=== PATIENT | male | born 1985 | race Caucasian/White ===

== ENCOUNTER 2019-06-16 06:13 | Day surgery (SDC) | payer OTHER ==
[~2019-06-16 06:13] MED LIST: EPINEPHrine 1 MG/ML 30 ML MDV ONE; FLU Vacc QS2019-20(6MOS+)/PF 60 MCG/0.5 ML SYRINGE IM ONE; Lactated Ringers 1,000 ML IV SCH; Lidocaine 1%/Sod Bicarbonate in NS 8.4% 1 ML Syringe IDERM PRN; Sodium Chloride 0.9% 10 ML Syringe FLUSH PRN
[2019-06-16] MEDS ORDERED: Bupivacaine 0.25% 10 ML SDV ONE (06:37)
[2019-06-16] MEDS ORDERED: Lactated Ringers 1,000 ML ONE (06:55)
[2019-06-16] MEDS ORDERED: Midazolam 1 MG/ML 2 ML SDV ONE (06:55)
[2019-06-16] MEDS ORDERED: Lidocaine 1% 4 ML ONE (06:55)
[2019-06-16] MEDS ORDERED: Ondansetron 4 MG/2 ML SDV ONE (06:55)
[2019-06-16] MEDS ORDERED: Propofol 200 MG/20 ML SDV ONE ×2 (06:55→06:58)
[2019-06-16] MEDS ORDERED: ceFAZolin 1 GM Vial ONE (06:55)
[2019-06-16] MEDS ORDERED: fentaNYL 250 MCG/5 ML SDV ONE (06:56)
[2019-06-16] MEDS ORDERED: Dexamethasone 4 MG/ML 5 ML MDV ONE (06:56)
[2019-06-16] MEDS ORDERED: Ketorolac 30 MG/ML SDV ONE (06:56)
--- NOTE | 2019-06-16 07:36 | PCM.PREANE ---
Preanesthetic Assessment - Anesthesia/Transfusion/Family Hx Anesthesia History: Prior Anesthesia Without Reaction Family History of Anesthesia Reaction: No Transfusion History: No Prior Transfusion(s) - Review of Systems General: No Symptoms Pulmonary: No Symptoms Cardiovascular: No Symptoms (Borderline Hypertension, following with primary and monitoring currently not on any medications. ) Gastrointestinal: No Symptoms Neurological: Other (Insomnia uses marijuana nightly to sleep. Inhaled. Last time 2 days ago. ) Other: Reports: None - Physical Assessment NPO Status Date: 06/15/19 NPO Status Time: 20:30 Vital Signs: Last Vital Signs Temp 36.7 C 06/16/19 06:25 Pulse 79 06/16/19 06:25 Resp 16 06/16/19 06:25 BP 142/96 H 06/16/19 06:25 Pulse Ox 97 06/16/19 06:25 Height: 1.83 m Weight: 104.326 kg ASA Class: 2 Mental Status: Alert & Oriented x3 Airway Class: Mallampati = 1 Dentition: Reports: Caries Thyro-Mental Finger Breadths: 3 Mouth Opening Finger Breadths: 3 ROM/Head Extension: Full Lungs: Clear to Auscultation, Normal Respiratory Effort Cardiovascular: Regular Rate, Regular Rhythm - Lab Values: Laboratory Last Values MRSA (PCR) Negative 06/14/19 10:55 - Allergies Allergies/Adverse Reactions: Allergies Allergy/AdvReac Type Severity Reaction Status Date / Time No Known Allergies Allergy Verified 06/15/19 13:01 - Acknowledgements Anesthesia Type Planned: General Anesthesia Pt an Appropriate Candidate for the Planned Anesthesia: Yes Alternatives and Risks of Anesthesia Discussed w Pt/Guardian: Yes Pt/Guardian Understands and Agrees with Anesthesia Plan: Yes PreAnesthesia Questionnaire - Past Health History Medical/Surgical History: Denies Medical/Surgical History Other Musculoskeletal History: knee cap dislocation - Past Surgical History Musculoskeletal Surgical History: Reports: Other (See Below) Other Musculoskeletal Surgeries/Procedures:: left hand surgery - SUBSTANCE USE Smoking Status *Q: Former Smoker Recreational Drug Use History: Yes Recreational Drug Type: Reports: Marijuana/Hashish - HOME MEDS Home Medications: Home Meds Esomeprazole Magnesium [Nexium] 20 mg PO DAILY 06/15/19 [History] Lactobacillus Combo No.10 [Probiotic] 1 cap PO DAILY 06/15/19 [History] Acetaminophen/HYDROcodone [[place] 325-5 MG] 1 - 2 tab PO Q6H PRN #20 tablet 06/16 [Rx] Aspirin 325 mg PO BID #84 tab 06/16/19 [Rx] - CURRENT (IN HOUSE) MEDS Current Meds: Current Medications Lactated Ringer's (Ringers, Lactated) 1,000 mls @ 125 mls/hr IV ASDIRECTED JATINDER Stop: 06/16/19 23:00 Last Admin: 06/16/19 06:59 Dose: 125 mls/hr Lidocaine/Sodium Bicarbonate (Buffered Lidocaine 1% In Ns 8.4%) 0.25 ml IDERM ONETIME PRN PRN Reason: Prior to IV Start Stop: 06/16/19 23:00 Last Admin: 06/16/19 06:59 Dose: 0.25 ml Sodium Chloride (Saline Flush) 10 ml FLUSH ASDIRECTED PRN PRN Reason: Keep Vein Open Stop: 06/16/19 23:00 Discontinued Medications Bupivacaine HCl (Sensorcaine-Mpf 0.25%) Confirm Administered Dose 20 ml .ROUTE .STK-MED ONE Stop: 06/16/19 06:38 Cefazolin Sodium (Ancef) Confirm Administered Dose 2 gm .ROUTE .STK-MED ONE Stop: 06/16/19 06:56 Dexamethasone (Dexamethasone) Confirm Administered Dose 20 mg .ROUTE .STK-MED ONE Stop: 06/16/19 06:57 Epinephrine HCl (Adrenalin) 3 mg .XX ONETIME ONE Stop: 06/15/19 10:01 Fentanyl (Sublimaze) Confirm Administered Dose 250 mcg .ROUTE .STK-MED ONE Stop: 06/16/19 06:57 Lidocaine HCl (Xylocaine-Mpf 1%) Confirm Administered Dose 4 mls @ as directed .ROUTE .STK-MED ONE Stop: 06/16/19 06:56 Lactated Ringer's (Ringers, Lactated) Confirm Administered Dose 1,000 mls @ as directed .ROUTE .STK-MED ONE Stop: 06/16/19 06:56 Influenza Virus Vaccine (Fluzone Quad 5867-1103 Syringe) 60 mcg IM .ONCE ONE Stop: 06/15/19 13:01 Ketorolac Tromethamine (Toradol) Confirm Administered Dose 30 mg .ROUTE .STK- MED ONE Stop: 06/16/19 06:57 Midazolam HCl (Versed 1 Mg/Ml) Confirm Administered Dose 2 mg .ROUTE .STK-MED ONE Stop: 06/16/19 06:56 Ondansetron HCl (Zofran) Confirm Administered Dose 4 mg .ROUTE .STK-MED ONE Stop: 06/16/19 06:56 Propofol (Diprivan 20 Ml) Confirm Administered Dose 400 mg .ROUTE .STK-MED ONE Stop: 06/16/19 06:56 Propofol (Diprivan 20 Ml) Confirm Administered Dose 200 mg .ROUTE .STK-MED ONE Stop: 06/16/19 06:59
[2019-06-16] MEDS ORDERED: HYDROmorphone 0.5 MG/0.5 ML Syringe IVPUSH PRN (07:37)
[2019-06-16] MEDS ORDERED: Ondansetron 4 MG/2 ML SDV IVPUSH PRN (07:37)
[2019-06-16] MEDS ORDERED: fentaNYL 100 MCG/2 ML SDV IVPUSH PRN (07:37)
--- NOTE | 2019-06-16 08:12 | PCM.POSTAN ---
POST ANESTHESIA ASSESSMENT - MENTAL STATUS Mental Status: Somnolent - VITAL SIGNS Vital Signs: Last Vital Signs Temp 36.7 C 06/16/19 06:25 Pulse 79 06/16/19 06:25 Resp 16 06/16/19 06:25 BP 142/96 H 06/16/19 06:25 Pulse Ox 97 06/16/19 06:25 - RESPIRATORY Respiratory Status: Respiratory Rate WNL, Airway Patent, Supplemental Oxygen - CARDIOVASCULAR CV Status: Pulse Rate WNL, Blood Pressure Stable - GASTROINTESTINAL GI Status: No Symptoms - PAIN Pain Score: 0 - POST OP HYDRATION Hydration Status: Adequate & Stable
[2019-06-16] MEDS ORDERED: Acetaminophen/HYDROcodone 325-5 MG Tab PO PRN (08:30)
[2019-06-16] MEDS ORDERED: FLU Vacc QS2019-20(6MOS+)/PF 60 MCG/0.5 ML SYRINGE ONE (08:43)
--- NOTE | 2019-06-16 09:07 | PCM48HPAN ---
Post Anesthesia Note - EVALUATION WITHIN 48HRS OF ANESTHETIC Vital Signs in Normal Range: Yes Patient Participated in Evaluation: Yes Respiratory Function Stable: Yes Airway Patent: Yes Cardiovascular Function Stable: Yes Hydration Status Stable: Yes Pain Control Satisfactory: Yes Nausea and Vomiting Control Satisfactory: Yes Mental Status Recovered: Yes Vital Signs: Last Vital Signs Temp 37.2 C 06/16/19 08:51 Pulse 78 06/16/19 08:51 Resp 16 06/16/19 08:51 BP 140/89 06/16/19 08:51 Pulse Ox 95 06/16/19 08:51
--- NOTE | 2019-06-20 07:01 | PCM.OPNOTE ---
- General Post-Op/Procedure Note Date of Surgery/Procedure: 06/16/19 Operative Procedure(s): right knee video arthroscopy with partial medial meniscectomy Pre Op Diagnosis: right knee medial meniscus tear Post-Op Diagnosis: Same Anesthesia Technique: General LMA, Local Primary Surgeon: Osbaldo Valdez Anesthesia Provider: [facility] Recruiter: Estefani Medrano in mLs: 5 Complications: None Condition: Good
--- NOTE | 2019-06-20 07:50 | OR ---
DATE OF OPERATION: 06/16/2019 SURGEON: Osbaldo Valdez MD OPERATION PERFORMED: Right knee video arthroscopy with partial medial meniscectomy. PREOPERATIVE DIAGNOSIS: Right knee medial meniscus tear. POSTOPERATIVE DIAGNOSIS: Right knee medial meniscus tear. ANESTHESIA: General LMA with local. ANESTHESIA PROVIDER: Jeri Manriquez. BOILER HOUSE OPERATOR: Estefani Medrano PA-C. ESTIMATED BLOOD LOSS: Less than 5 mL. COMPLICATIONS: None. CONDITION: Stable. DESCRIPTION OF PROCEDURE: The patient was identified in the preop holding area. Proper site was marked and identified by the surgeon. The patient was taken back to the operating theater, where after adequate anesthesia, the patient was placed supine on a flat top table. Left lower extremity was placed in a well leg sifuentes. Right lower extremity had a nonsterile tourniquet applied and was placed in a C-clamp sifuentes. Foot of the bed was then lowered. Right lower extremity was then sterilely prepped and draped in the usual sterile fashion. OR time-out was performed. The patient received 2 g IV Ancef. Right lower extremity was exsanguinated and tourniquet was insufflated to 250 mmHg. Standard anterolateral portal was made and scope trocar was introduced. 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 Attention was turned to the medial compartment. With the use of a spinal needle, anteromedial portal was created. A probe was then introduced. The patient was noted to have a degenerative tear of the posterior third horn of the medial meniscus that was irreparable. At this time, a partial medial meniscectomy of roughly half of the posterior horn was then done back to a stable rim. All loose fragments were irrigated out of the knee. At this time, attention was turned to the notch. ACL was intact in the notch. Lateral compartment showed no signs of meniscal tear or chondromalacia. I did do a partial synovectomy of the plica as well as medial fat pad at this time as well. Excess saline was drained from the knee. A 3-0 nylon suture was used for closure of the portal incisions. The patient had a sterile soft dressing applied and sent to PACU in stable condition. MMODAL /[id number]
== END 2019-06-16 09:50 | disposition home or self-care (01) ==
LOC: JD.SDS 06:13
PROVIDERS: ATTEND Orthopaedic Surgery
DX: M23.321 Other meniscus derangements, posterior horn of medial meniscus, right knee (principal); M22.41 Chondromalacia patellae, right knee; M65.861 Other synovitis and tenosynovitis, right lower leg; M67.51 Plica syndrome, right knee; I10 Essential (primary) hypertension; Z23 Encounter for immunization; Z87.891 Personal history of nicotine dependence
CPT/HCPCS: 29881; 87641; 90686; A9270; J0171; J0690; J1100; J1885; J2001; J2250; J2405; J2704; J3010; J3490; J7120; 01400

== ENCOUNTER 2020-11-14 17:29 | Emergency (ER) | payer OTHER ==
--- NOTE | 2020-11-14 19:17 | EDM.PDOC ---
ED HPI GENERAL MEDICAL PROBLEM - General Chief Complaint: ENT Problem Stated Complaint: TOOTHACHE Time Seen by Provider: 11/14/20 19:16 - History of Present Illness INITIAL COMMENTS - FREE TEXT/NARRATIVE: 35-year-old male presents the emergency room with dental pain. This is been getting worse over the last 4 to 5 days unfortunately he does not believe he can get into see the dentist until December. The pain is in the right lower teeth. It has been difficult for him to get much rest this is been going on for about 4 days now. He has not had any fevers or chills chewing on the side is difficult. Right Oral/Mouth Pain Score (Numeric/FACES): 9 - Related Data Allergies Allergy/AdvReac Type Severity Reaction Status Date / Time No Known Allergies Allergy Verified 11/14/20 19:09 Home Meds: Home Meds Esomeprazole Magnesium [Nexium] 20 mg PO DAILY 06/15/19 [History] Lactobacillus Combo No.10 [Probiotic] 1 cap PO DAILY 06/15/19 [History] Amoxicillin [Amoxil] 875 mg PO Q12HR #20 tab 11/14/20 [Rx] Hydrocodone/Acetaminophen [Hydrocodon-Acetaminophen 5-325] 1 - 2 each PO Q6H PRN #20 tablet 11/14/20 [Rx] lisinopriL [Lisinopril] 20 mg PO DAILY 11/14/20 [History] Past Medical History - Past Health History Medical/Surgical History: Denies Medical/Surgical History Other Musculoskeletal History: knee cap dislocation - Past Surgical History Musculoskeletal Surgical History: Reports: Other (See Below) Other Musculoskeletal Surgeries/Procedures:: left hand surgery Social & Family History - Tobacco Use Tobacco Use Status *Q: Never Tobacco User Second Hand Smoke Exposure: No - Caffeine Use Caffeine Use: Reports: Coffee - Recreational Drug Use Recreational Drug Use: No ED ROS ENT - Review of Systems Review Of Systems: See Below Constitutional: Reports: No Symptoms HEENT: Reports: Dental Pain Respiratory: Reports: No Symptoms Cardiovascular: Reports: No Symptoms GI/Abdominal: Reports: No Symptoms ED EXAM, ENT - Physical Exam Exam: See Below Exam Limited By: No Limitations General Appearance: Alert, No Apparent Distress Eye Exam: Bilateral Eye: Normal Inspection Ears: Normal External Exam, Normal Canal, Hearing Grossly Normal, Normal TMs Nose: Normal Inspection, Normal Mucousa, No Blood Mouth/Throat: Normal Inspection, Normal Lips, Normal Oropharynx. No: Normal Gums (He has some mild erythema in the right lower gums lateral aspect he has quite a bit of tenderness below this area no obvious abscess at this time no drainage noted.) Head: Atraumatic, Normocephalic Neck: Normal Inspection, Supple, Non-Tender, Full Range of Motion. No: Lymphadenopathy (L), Lymphadenopathy (R) Respiratory/Chest: No Respiratory Distress, Lungs Clear, Normal Breath Sounds Cardiovascular: Regular Rate, Rhythm, No Edema, No Murmur Course - Vital Signs Last Recorded V/S: Last Vital Signs Temp 36.8 C 11/14/20 19:06 Pulse 64 11/14/20 19:06 Resp 16 11/14/20 19:06 BP 174/113 H 11/14/20 19:06 Pulse Ox 98 11/14/20 19:06 - Orders/Labs/Meds Meds: Medications Discontinued Medications Generic Name Dose Route Start Last Admin Trade Name Freq PRN Reason Stop Dose Admin Ceftriaxone Sodium 1 gm/ 0 gm 11/14/20 19:27 Lidocaine HCl 2.1 ml IM 11/14/20 19:28 ONETIME ONE - Re-Assessments/Exams Free Text/Narrative Re-Assessment/Exam: 11/14/20 19:37 7 developing dental infection possible abscess. We will give him a gram of Rocephin IM and have him start Augmentin 875 twice daily in the morning will give him a few pain pills to help with his symptoms. Departure - Departure Time of Disposition: 19:38 Disposition: Home, Self-Care 01 Clinical Impression: Pain, dental - Discharge Information Referrals: Silvia Luu PA-C [Primary Care Provider] - Forms: ED Department Discharge Additional Instructions: Return to the emergency room with any questions problems or worsening symptoms. Try and follow-up with your dentist as soon as possible preferably next week. You have been given a shot of Rocephin, this is a strong antibiotic tonight. Tomorrow morning start the amoxicillin clavulanic acid 1 twice daily starting tomorrow morning. Tylenol and/or Motrin as needed for pain. At night when the pain is quite severe use the hydrocodone. Take 1 or 2 every 6 hours as needed for pain. Allow 12 hours after using this medication before driving or returning to work. Sepsis Event Note (ED) - Evaluation Sepsis Screening Result: No Definite Risk - Focused Exam Vital Signs: Vital Signs Temp Pulse Resp BP Pulse Ox 11/14/20 19:06 36.8 C 64 16 174/113 H 98
[2020-11-14] MEDS ORDERED: cefTRIAXone 1 GM, Lidocaine 1% 2.1 ML IM ONE ×2 (19:27)
== END 2020-11-14 19:54 | disposition home or self-care (01) ==
LOC: JD.ED 17:29
DX: K08.89 Other specified disorders of teeth and supporting structures (principal); Z79.899 Other long term (current) drug therapy
CPT/HCPCS: 96372; 99282; J0696; 99283